=== PATIENT | male | born 1940 | race African-American/Black ===

== ENCOUNTER 2017-01-23 13:57 | Inpatient (IN) | payer BC, MEDICARE ==
[~2017-01-23] VITALS: Ht 180.3 cm; Wt 68.9 kg
[~2017-01-23 13:57] MED LIST: ATOR10TA PO; DIGO125T82 PO; DILT240C91 PO; FINA5TAB3 PO; HYDR-523 PO; LEVO500T2 PO; LISI-604 PO; METR500T PO; PROT40 PO; TAMS-11 PO
[2017-01-23] MEDS ORDERED: MORPHINE SULFATE 4 MG/ML CPJ (NOT FOR IM USE) IV ONE ×2 (15:30→17:30)
[2017-01-23] MEDS ORDERED: DILTIAZEM HCL 60MG TABLET PO ONE (18:45)
[2017-01-23] MEDS ORDERED: MAGNESIUM/ALUMINUM HYDROXIDE/SIMETHICONE 30ML UDC PO PRN (21:30)
[2017-01-23] MEDS ORDERED: ONDANSETRON HCL 4MG/2ML VIAL IV PRN (21:30)
[2017-01-23] MEDS ORDERED: MAGNESIUM HYDROXIDE 400MG/5ML 30ML UDC PO PRN (21:30)
[2017-01-23] MEDS ORDERED: DIPHENHYDRAMINE 50MG/ML VIAL IV PRN (21:30)
[2017-01-23] MEDS ORDERED: CLONIDINE 0.1MG TABLET PO PRN (21:30)
[2017-01-23] MEDS ORDERED: MORPHINE SULFATE 4 MG/ML CPJ (NOT FOR IM USE) IV PRN (21:30)
[2017-01-23] MEDS ORDERED: GUAIFENESIN 200MG/10ML SUGAR FREE UDC PO PRN (21:30)
[2017-01-23] MEDS ORDERED: ACETAMINOPHEN 325MG TABLET PO PRN (21:30)
[2017-01-23 22:00] VITALS: BP 163/80
[2017-01-23 22:31] VITALS: BP 163/77
[2017-01-23] MEDS: SODIUM CHLORIDE 0.9% INJ 3ML FLUSH IVF SCH (23:00)
[2017-01-24] VITALS: BP 160/72
[2017-01-24 04:00] VITALS: BP 172/68
[2017-01-24] MEDS: SODIUM CHLORIDE 0.9% INJ 3ML FLUSH IVF SCH ×3 (06:55→21:37)
[2017-01-24 08:00] VITALS: BP 143/74
[2017-01-24] MEDS: DILTIAZEM HCL 240MG ER (24HR) PO SCH (09:26)
[2017-01-24] MEDS: LISINOPRIL 20MG TABLET PO SCH ×2 (09:27→21:36)
[2017-01-24] MEDS: DOCUSATE SODIUM 250MG CAPSULE PO SCH ×2 (09:27→17:33)
[2017-01-24] MEDS: TAMSULOSIN HCL 0.4MG SR CAPSULE PO SCH (09:27)
[2017-01-24] MEDS: FINASTERIDE 5MG TABLET PO SCH (09:27)
[2017-01-24] MEDS ORDERED: MORPHINE SULFATE 2 MG/ML CPJ (NOT FOR IM USE) IV PRN (11:30)
[2017-01-24 12:00] VITALS: BP 128/72
[2017-01-24] MEDS: ASPIRIN 325MG EC TABLET PO SCH (12:13)
[2017-01-24] MEDS: HYDROCODONE/ACETAMINOPHEN 10/325MG TABLET PO PRN ×2 (14:46→17:42)
[2017-01-24 16:00] VITALS: BP 135/84
[2017-01-24 17:16] LABS: BASOPHILS % 0.5 % (0.0-2.0); EOSINOPHILS % 0.4 % (0.0-5.0); HEMATOCRIT. 34.7 % (42.0-52.0); HEMOGLOBIN. 11.6 g/dL (14.0-18.0); LYMPHOCYTES % 14.3 % (20.0-50.0); MEAN CORPUSCULAR HEMOGLOBIN 28.3 pg (28.0-32.0); MEAN CORPUSCULAR VOLUME 84.4 fL (80.0-94.0); MEAN PLATELET VOLUME 9.3 fl (7.4-10.4); MONOCYTES % 12.1 % (2.0-8.0); NEUTROPHILS % 72.7 % (40.0-76.0); PLATELET 192 x1000/uL (130-400); RED BLOOD CELL COUNT 4.11 mill/uL (4.7-6.1); RED CELL DISTRIBUTION WIDTH 16.1 % (11.6-14.6)
[2017-01-24] MEDS: DIGOXIN 125MCG TABLET PO SCH (17:33)
[2017-01-24 20:00] VITALS: BP 145/85
[2017-01-24] MEDS: ATORVASTATIN CALCIUM 10MG TABLET PO SCH (21:36)
[2017-01-25] VITALS: BP 134/80
[2017-01-25 04:00] VITALS: BP 129/69
[2017-01-25] MEDS: SODIUM CHLORIDE 0.9% INJ 3ML FLUSH IVF SCH ×3 (06:00→21:33)
[2017-01-25 06:24] LABS: BASOPHILS % 0.3 % (0.0-2.0); EOSINOPHILS % 0.1 % (0.0-5.0); HEMATOCRIT. 32.7 % (42.0-52.0); HEMOGLOBIN. 11.1 g/dL (14.0-18.0); LYMPHOCYTES % 13.9 % (20.0-50.0); MEAN CORPUSCULAR HEMOGLOBIN 28.6 pg (28.0-32.0); MEAN CORPUSCULAR VOLUME 84.5 fL (80.0-94.0); MEAN PLATELET VOLUME 8.9 fl (7.4-10.4); MONOCYTES % 12.8 % (2.0-8.0); NEUTROPHILS % 72.9 % (40.0-76.0); PLATELET 185 x1000/uL (130-400); RED BLOOD CELL COUNT 3.87 mill/uL (4.7-6.1); RED CELL DISTRIBUTION WIDTH 15.5 % (11.6-14.6)
[2017-01-25 07:45] LABS: CARBON DIOXIDE 22 mEq/L (21-32); CHLORIDE 105 mEq/L (98-107)
[2017-01-25] MEDS: TAMSULOSIN HCL 0.4MG SR CAPSULE PO SCH (09:00)
[2017-01-25] MEDS: DOCUSATE SODIUM 250MG CAPSULE PO SCH ×2 (09:00→18:37)
[2017-01-25] MEDS: FINASTERIDE 5MG TABLET PO SCH (09:00)
[2017-01-25] MEDS ORDERED: LORAZEPAM 2MG/ML CPJ IV NR (10:00)
[2017-01-25] MEDS: ASPIRIN 325MG EC TABLET PO SCH (10:57)
[2017-01-25] MEDS: DILTIAZEM HCL 240MG ER (24HR) PO SCH (10:57)
[2017-01-25] MEDS: LISINOPRIL 20MG TABLET PO SCH ×2 (10:58→20:58)
[2017-01-25 13:00] VITALS: BP 153/64
[2017-01-25] MEDS: DIGOXIN 125MCG TABLET PO SCH (18:35)
[2017-01-25 20:00] VITALS: BP 141/72
[2017-01-25] MEDS: ATORVASTATIN CALCIUM 10MG TABLET PO SCH (20:57)
[2017-01-26] VITALS: BP 136/65
[2017-01-26 04:00] VITALS: BP 134/85
[2017-01-26] MEDS: SODIUM CHLORIDE 0.9% INJ 3ML FLUSH IVF SCH ×3 (06:00→21:14)
[2017-01-26 08:00] VITALS: BP 135/69
[2017-01-26] MEDS: TAMSULOSIN HCL 0.4MG SR CAPSULE PO SCH (10:27)
[2017-01-26] MEDS: DOCUSATE SODIUM 250MG CAPSULE PO SCH ×2 (10:27→17:53)
[2017-01-26] MEDS: ASPIRIN 325MG EC TABLET PO SCH (10:27)
[2017-01-26] MEDS: DILTIAZEM HCL 240MG ER (24HR) PO SCH (10:27)
[2017-01-26] MEDS: FINASTERIDE 5MG TABLET PO SCH (10:28)
[2017-01-26] MEDS: LISINOPRIL 20MG TABLET PO SCH ×2 (10:28→21:06)
[2017-01-26 15:45] LABS: AMMONIA 11 uMol/L (<32)
[2017-01-26 15:56] LABS: T4 FREE 1.46 ng/dL (0.76-1.46)
[2017-01-26 16:24] LABS: FOLIC ACID (FOLATE) SERUM 7.7 ng/mL (>5.38)
[2017-01-26] MEDS: DIGOXIN 125MCG TABLET PO SCH (17:53)
[2017-01-26 20:00] VITALS: BP 121/79
[2017-01-26] MEDS: ATORVASTATIN CALCIUM 10MG TABLET PO SCH (21:05)
[2017-01-27] VITALS: BP 144/73
[2017-01-27 04:00] VITALS: BP 140/63
[2017-01-27] MEDS: SODIUM CHLORIDE 0.9% INJ 3ML FLUSH IVF SCH ×2 (07:02→13:28)
[2017-01-27 08:00] VITALS: BP 153/71
[2017-01-27] MEDS: ASPIRIN 325MG EC TABLET PO SCH (08:25)
[2017-01-27] MEDS: DOCUSATE SODIUM 250MG CAPSULE PO SCH ×2 (08:25→16:27)
[2017-01-27] MEDS: FINASTERIDE 5MG TABLET PO SCH (08:25)
[2017-01-27] MEDS: TAMSULOSIN HCL 0.4MG SR CAPSULE PO SCH (08:26)
[2017-01-27] MEDS: LISINOPRIL 20MG TABLET PO SCH ×2 (08:27→22:04)
[2017-01-27] MEDS: DILTIAZEM HCL 240MG ER (24HR) PO SCH (08:27)
[2017-01-27 12:00] VITALS: BP 145/76
[2017-01-27 16:00] VITALS: BP 126/62
[2017-01-27] MEDS: DIGOXIN 125MCG TABLET PO SCH (17:19)
[2017-01-27 20:00] VITALS: BP 152/80
[2017-01-27] MEDS: ATORVASTATIN CALCIUM 10MG TABLET PO SCH (22:04)
[2017-01-28] VITALS: BP 158/88
[2017-01-28 04:00] VITALS: BP 156/82
[2017-01-28 08:00] VITALS: BP 137/74
[2017-01-28] MEDS: DOCUSATE SODIUM 250MG CAPSULE PO SCH ×2 (09:00→17:00)
[2017-01-28] MEDS: ASPIRIN 325MG EC TABLET PO SCH (09:03)
[2017-01-28] MEDS: TAMSULOSIN HCL 0.4MG SR CAPSULE PO SCH (09:04)
[2017-01-28] MEDS: FINASTERIDE 5MG TABLET PO SCH (09:05)
[2017-01-28] MEDS: DILTIAZEM HCL 240MG ER (24HR) PO SCH (09:05)
[2017-01-28] MEDS: LISINOPRIL 20MG TABLET PO SCH ×2 (09:05→21:15)
[2017-01-28 12:00] VITALS: BP 151/82
[2017-01-28] MEDS: SODIUM CHLORIDE 0.9% INJ 3ML FLUSH IVF SCH ×2 (13:56→21:17)
[2017-01-28 16:00] VITALS: BP 142/81
[2017-01-28] MEDS: DIGOXIN 125MCG TABLET PO SCH (17:53)
[2017-01-28 20:00] VITALS: BP 167/80
[2017-01-28] MEDS: ATORVASTATIN CALCIUM 10MG TABLET PO SCH (21:15)
[2017-01-29] VITALS: BP 161/84
[2017-01-29 04:00] VITALS: BP 163/93
[2017-01-29] MEDS: SODIUM CHLORIDE 0.9% INJ 3ML FLUSH IVF SCH ×3 (06:03→22:06)
[2017-01-29 08:00] VITALS: BP 112/70
[2017-01-29] MEDS: DOCUSATE SODIUM 250MG CAPSULE PO SCH ×2 (09:00→17:00)
[2017-01-29] MEDS: LISINOPRIL 20MG TABLET PO SCH ×2 (09:00→22:05)
[2017-01-29] MEDS: DILTIAZEM HCL 240MG ER (24HR) PO SCH (09:00)
[2017-01-29] MEDS: ASPIRIN 325MG EC TABLET PO SCH (09:00)
[2017-01-29] MEDS: TAMSULOSIN HCL 0.4MG SR CAPSULE PO SCH (09:01)
[2017-01-29] MEDS: FINASTERIDE 5MG TABLET PO SCH (09:01)
[2017-01-29 12:46] VITALS: BP 126/77
[2017-01-29] MEDS: LEVOFLOXACIN 500MG TABLET PO SCH (17:16)
[2017-01-29 17:19] VITALS: BP 129/67
[2017-01-29] MEDS: DIGOXIN 125MCG TABLET PO SCH (18:03)
[2017-01-29 20:00] VITALS: BP 131/70
[2017-01-29] MEDS: ATORVASTATIN CALCIUM 10MG TABLET PO SCH (22:05)
[2017-01-30] VITALS: BP 148/73
[2017-01-30 04:00] VITALS: BP 127/75
[2017-01-30] MEDS: SODIUM CHLORIDE 0.9% INJ 3ML FLUSH IVF SCH ×2 (07:01→14:09)
[2017-01-30] MEDS: ASPIRIN 325MG EC TABLET PO SCH (08:36)
[2017-01-30] MEDS: DOCUSATE SODIUM 250MG CAPSULE PO SCH ×2 (08:36→17:00)
[2017-01-30] MEDS: FINASTERIDE 5MG TABLET PO SCH (08:36)
[2017-01-30] MEDS: DILTIAZEM HCL 240MG ER (24HR) PO SCH (08:36)
[2017-01-30] MEDS: TAMSULOSIN HCL 0.4MG SR CAPSULE PO SCH (08:36)
[2017-01-30] MEDS: LISINOPRIL 20MG TABLET PO SCH (08:36)
[2017-01-30 08:59] VITALS: BP 141/79
[2017-01-30] MEDS: LEVOFLOXACIN 500MG TABLET PO SCH (10:49)
[2017-01-30 12:49] VITALS: BP 146/80
[2017-01-30 17:11] VITALS: BP 108/66
[2017-01-30] MEDS: DIGOXIN 125MCG TABLET PO SCH (17:36)
[2017-01-30 17:57] VITALS: BP 108/66
== END 2017-01-30 18:50 | DRG 562 ==
LOC: ER 14:54 → 6EST 17:56 → CANRESERV 20:24 → ENRESERV 20:24
PROVIDERS: ADMIT Internal Medicine; ATTEND Internal Medicine
DX: S42.212A Unspecified displaced fracture of surgical neck of left humerus, initial encounter for closed fracture (principal); G82.50 Quadriplegia, unspecified; G92 Toxic encephalopathy; K50.90 Crohn's disease, unspecified, without complications; I48.0 Paroxysmal atrial fibrillation; R41.4 Neurologic neglect syndrome; H53.469 Homonymous bilateral field defects, unspecified side; N39.0 Urinary tract infection, site not specified; I11.9 Hypertensive heart disease without heart failure; I69.354 Hemiplegia and hemiparesis following cerebral infarction affecting left non-dominant side; J44.9 Chronic obstructive pulmonary disease, unspecified; W01.0XXA Fall on same level from slipping, tripping and stumbling without subsequent striking against object, initial encounter; N40.0 Benign prostatic hyperplasia without lower urinary tract symptoms; E78.00 Pure hypercholesterolemia, unspecified; S50.02XA Contusion of left elbow, initial encounter; Y93.01 Activity, walking, marching and hiking; R26.9 Unspecified abnormalities of gait and mobility; B96.4 Proteus (mirabilis) (morganii) as the cause of diseases classified elsewhere; E78.5 Hyperlipidemia, unspecified; F17.210 Nicotine dependence, cigarettes, uncomplicated; I25.10 Atherosclerotic heart disease of native coronary artery without angina pectoris; I35.1 Nonrheumatic aortic (valve) insufficiency; K21.9 Gastro-esophageal reflux disease without esophagitis; Z82.49 Family history of ischemic heart disease and other diseases of the circulatory system; Z95.1 Presence of aortocoronary bypass graft; Y92.89 Other specified places as the place of occurrence of the external cause; Y99.8 Other external cause status; Z68.21 Body mass index [BMI] 21.0-21.9, adult; Z79.899 Other long term (current) drug therapy
CPT/HCPCS: 36415; 70450; 70551; 73030; 73060; 73090; 80048; 80053; 82140; 82607; 82746; 83036; 84439; 84443; 84481; 85025; 87077; 87086; 87186; 92523; 92610; 93005; 93306; 93880; 96374; 96376; 97112; 97116; 97163; 97166; 97530; 99285; J2060; J2270; L3670

== ENCOUNTER 2018-11-26 12:29 | Emergency (ER) | payer BC ==
[~2018-11-26] VITALS: Ht 180.3 cm; Wt 73.0 kg
[2018-11-26 13:32] LABS: EOSINOPHILS % 0.1 % (0.0-5.0); HEMATOCRIT. 40.8 % (42.0-52.0); HEMOGLOBIN. 13.6 g/dL (14.0-18.0); MEAN CORPUSCULAR HEMOGLOBIN 29.2 pg (28.0-32.0); MEAN CORPUSCULAR VOLUME 87.7 fL (80.0-94.0); MEAN PLATELET VOLUME 8.6 fl (7.4-10.4); MONOCYTES % 11.8 % (2.0-8.0); NEUTROPHILS % 71.1 % (40.0-76.0); PLATELET 152 x1000/uL (130-400); RED BLOOD CELL COUNT 4.65 mill/uL (4.7-6.1)
[2018-11-26 13:39] LABS: CHLORIDE 111 mEq/L (98-107)
[2018-11-26 14:35] LABS: INR 1.1
[2018-11-26 17:40] LABS: CLARITY URINE CLEAR (CLEAR); COLOR URINE YELLOW (YELLOW); KETONES URINE TRACE (NEGATIVE); LEUKOCYTE ESTERASE URINE NEGATIVE (NEGATIVE); NITRITE URINE NEGATIVE (NEGATIVE); OCCULT BLOOD URINE 1+ (NEGATIVE); PROTEIN URINE 1+ (NEGATIVE); SPECIFIC GRAVITY URINE 1.025 (1.005-1.030)
[2018-11-26] MEDS ORDERED: ACETAMINOPHEN 650MG/20.3ML UDC PO ONE (18:30)
[2018-11-26 20:09] VITALS: BP 182/91
== END 2018-11-26 22:35 | disposition home or self-care (01) ==
LOC: ER 14:48
DX: S40.011A Contusion of right shoulder, initial encounter (principal); W06.XXXA Fall from bed, initial encounter; Y93.89 Activity, other specified; Y92.013 Bedroom of single-family (private) house as the place of occurrence of the external cause; I67.82 Cerebral ischemia; I10 Essential (primary) hypertension
CPT/HCPCS: 36415; 71045; 73030; 83880; 84484; 93005; 99284; A4565

== ENCOUNTER 2019-04-09 13:09 | Emergency (ER) | payer BC ==
[~2019-04-09] VITALS: Ht 177.8 cm; Wt 69.1 kg
[2019-04-09] MEDS ORDERED: IOHEXOL-350 100 ML BOTTLE ONE (13:42)
[2019-04-09 13:43] LABS: BASOPHILS % 1.2 % (0.0-2.0); EOSINOPHILS % 1.1 % (0.0-5.0); HEMATOCRIT. 38.8 % (42.0-52.0); LYMPHOCYTES % 22.4 % (20.0-50.0); MEAN CORPUSCULAR HEMOGLOBIN 28.8 pg (28.0-32.0); MEAN CORPUSCULAR VOLUME 85.8 fL (80.0-94.0); MEAN PLATELET VOLUME 8.4 fl (7.4-10.4); MONOCYTES % 10.1 % (2.0-8.0); NEUTROPHILS % 65.2 % (40.0-76.0); PLATELET 257 x1000/uL (130-400); RED BLOOD CELL COUNT 4.52 mill/uL (4.7-6.1); RED CELL DISTRIBUTION WIDTH 16.7 % (11.6-14.6)
[2019-04-09 13:49] LABS: CHLORIDE 110 mEq/L (98-107)
[2019-04-09 13:51] LABS: PROTHROMBIN TIME 10.6 sec (9.6-11.0)
[2019-04-09 13:53] LABS: ETHANOL BLOOD < 10 mg/dL
[2019-04-09 13:56] LABS: LDL CHOLESTEROL 85 mg/dL (5-100)
[2019-04-09 19:24] VITALS: BP 139/76
== END 2019-04-09 19:48 | disposition short-term general hospital (02) ==
LOC: ER 13:29 → CANBEDREQ 18:28 → ER 19:48
DX: R47.81 Slurred speech (principal); Z86.73 Personal history of transient ischemic attack (TIA), and cerebral infarction without residual deficits; Z79.899 Other long term (current) drug therapy
CPT/HCPCS: 36415; 70450; 70496; 71045; 80053; 80320; 82962; 83721; 84484; 85025; 85610; 93005; 99285; Q9967; A4315; G0480

== ENCOUNTER 2019-05-17 09:57 | Inpatient (IN) | payer BC, MEDICARE ==
[~2019-05-17] VITALS: Ht 180.3 cm; Wt 69.6 kg
[2019-05-17] MEDS ORDERED: SODIUM CHLORIDE 0.9% 1000ML BAG (SEPSIS BOLUS) IV ONE (10:30)
[2019-05-17 11:17] LABS: BASOPHILS % 0.6 % (0.0-2.0); EOSINOPHILS % 1.4 % (0.0-5.0); HEMATOCRIT. 41.4 % (42.0-52.0); HEMOGLOBIN. 13.4 g/dL (14.0-18.0); LYMPHOCYTES % 13.4 % (20.0-50.0); MEAN CORPUSCULAR HEMOGLOBIN 28.1 pg (28.0-32.0); MEAN CORPUSCULAR VOLUME 86.9 fL (80.0-94.0); MEAN PLATELET VOLUME 9.1 fl (7.4-10.4); NEUTROPHILS % 77.6 % (40.0-76.0); PLATELET 245 x1000/uL (130-400); RED BLOOD CELL COUNT 4.76 mill/uL (4.7-6.1); RED CELL DISTRIBUTION WIDTH 16.2 % (11.6-14.6)
[2019-05-17 11:18] LABS: CHLORIDE 110 mEq/L (98-107)
[2019-05-17 12:19] LABS: BG BASE EXCESS -2.1 mmol/L (-2.0-2.0); BG CARBOXYHEMOGLOBIN 0.3 % (0.5-1.5); BG DEOXYHEMOGLOBIN 0.5 % (0.0-5.0); BG FRACTION INSPIRED OXYGEN 100; BG HCO3 ACT 21.5 mmol/L (22.0-26.0); BG METHEMOGLOBIN 0.1 % (0.0-1.5); BG OXYGEN SATURATION 99.5 % (92.0-98.5); BG OXYHEMOGLOBIN 99.1 % (94.0-97.0); BG PCO2 33.2 mmHg (35.0-45.0); BG PH 7.429 (7.350-7.450); BG PO2 360.7 mmHg (75.0-100.0); BG SAMPLE SITE RIGHT BRACHIAL; BG TOTAL HEMOGLOBIN 12.9 g/dL (12.0-18.0); BG VENT MODE MASK - NRB
[2019-05-17] MEDS ORDERED: PIPERACILLIN/TAZ 3.375G PREMIX 50 ML IV ONE (12:30)
[2019-05-17] MEDS ORDERED: VANCOMYCIN 1 G PREMIX 200 ML IV ONE (12:30)
[2019-05-17 13:55] LABS: INR 1.1
[2019-05-17 16:00] VITALS: BP_SYST 103; BP_SYST 128; BP_DIAS 54; BP_DIAS 66
[2019-05-17] MEDS ORDERED: IPRATROPIUM/ALBUTEROL 0.5-3(2.5)MG/3ML NEB HHN PRN (16:00)
[2019-05-17] MEDS ORDERED: ONDANSETRON HCL 4MG/2ML INJ IV PRN (16:00)
[2019-05-17] MEDS ORDERED: PIPERACILLIN/TAZ 3.375G PREMIX 50 ML IV SCH (16:00)
[2019-05-17] MEDS ORDERED: HYDROCODONE/ACETAMINOPHEN 5/325MG TABLET PO PRN (16:00)
[2019-05-17] MEDS ORDERED: CLONIDINE 0.1MG TABLET PO PRN (16:00)
[2019-05-17] MEDS ORDERED: ATOR20TA65 MT (16:16)
[2019-05-17] MEDS ORDERED: DOCU-138 MT (16:23)
[2019-05-17] MEDS ORDERED: AMLO10TA80 MT (16:25)
[2019-05-17 18:00] VITALS: BP 138/72
[2019-05-17] MEDS: ENOXAPARIN 40MG/0.4ML SYR SUBCUT SCH (18:13)
[2019-05-17] MEDS: PIPERACILLIN/TAZOBACTAM 3.375 G in DEXT 5% WATER 100 ML IV SCH ×2 (19:29→23:21)
[2019-05-17 20:00] VITALS: BP 146/68
[2019-05-17 21:56] VITALS: BP 132/59
[2019-05-18] VITALS (11 sets, daily range): BP systolic 120–146; BP diastolic 57–85
[2019-05-18] MEDS: VANCOMYCIN 1 G PREMIX 200 ML IV SCH ×2 (01:57→20:41)
[2019-05-18] MEDS: PIPERACILLIN/TAZOBACTAM 3.375 G in DEXT 5% WATER 100 ML IV SCH ×3 (06:00→17:48)
[2019-05-18 09:20] LABS: CHLORIDE 110 mEq/L (98-107)
[2019-05-18 09:30] LABS: LDL CHOLESTEROL 72 mg/dL (5-100)
[2019-05-18 09:33] LABS: CREATINE KINASE 62 IU/L (39-308); HDL CHOLESTEROL 50 mg/dL (40-59)
[2019-05-18 09:34] LABS: CREATINE KINASE MB FRACTION < 1.0 ng/mL (0.5-3.6)
[2019-05-18] MEDS: ASPIRIN 81MG EC TABLET PO SCH (11:30)
[2019-05-18] MEDS: AMLODIPINE 5MG TABLET PO SCH (11:31)
[2019-05-18 12:02] LABS: BASOPHILS % 0.8 % (0.0-2.0); HEMATOCRIT. 35.3 % (42.0-52.0); HEMOGLOBIN. 11.7 g/dL (14.0-18.0); LYMPHOCYTES % 9.8 % (20.0-50.0); MEAN CORPUSCULAR HEMOGLOBIN 28.3 pg (28.0-32.0); MEAN CORPUSCULAR VOLUME 85.3 fL (80.0-94.0); MEAN PLATELET VOLUME 9.3 fl (7.4-10.4); MONOCYTES % 12.1 % (2.0-8.0); NEUTROPHILS % 75.3 % (40.0-76.0); PLATELET 271 x1000/uL (130-400); RED BLOOD CELL COUNT 4.14 mill/uL (4.7-6.1); RED CELL DISTRIBUTION WIDTH 15.8 % (11.6-14.6)
[2019-05-18 12:27] LABS: BG BASE EXCESS -1.4 mmol/L (-2.0-2.0); BG CARBOXYHEMOGLOBIN 0.5 % (0.5-1.5); BG DEOXYHEMOGLOBIN 5.8 % (0.0-5.0); BG FRACTION INSPIRED OXYGEN 21; BG HCO3 ACT 22.5 mmol/L (22.0-26.0); BG METHEMOGLOBIN 0.2 % (0.0-1.5); BG OXYGEN SATURATION 94.2 % (92.0-98.5); BG OXYHEMOGLOBIN 93.5 % (94.0-97.0); BG PCO2 35.1 mmHg (35.0-45.0); BG PH 7.425 (7.350-7.450); BG PO2 70.4 mmHg (75.0-100.0); BG SAMPLE SITE RIGHT BRACHIAL; BG TOTAL HEMOGLOBIN 12.4 g/dL (12.0-18.0); BG VENT MODE ROOM AIR
[2019-05-18] MEDS ORDERED: HYDRALAZINE 20MG/ML VIAL IV PRN (13:30)
[2019-05-18] MEDS ORDERED: DIPHENHYDRAMINE 50MG/ML VIAL IV PRN (13:30)
[2019-05-18] MEDS ORDERED: LACTULOSE 20G/30ML UDC PO PRN (13:30)
[2019-05-18] MEDS ORDERED: LORAZEPAM 2MG/ML CPJ IV PRN (13:30)
[2019-05-18] MEDS: LEVETIRACETAM 500MG PREMIX 100 ML IV SCH ×2 (15:36→22:02)
[2019-05-18 17:17] LABS: CLARITY URINE CLEAR (CLEAR); COLOR URINE YELLOW (YELLOW); KETONES URINE NEGATIVE (NEGATIVE); LEUKOCYTE ESTERASE URINE 2+ (NEGATIVE); NITRITE URINE NEGATIVE (NEGATIVE); OCCULT BLOOD URINE 1+ (NEGATIVE); PROTEIN URINE NEGATIVE (NEGATIVE); SPECIFIC GRAVITY URINE 1.012 (1.005-1.030); UROBILINOGEN URINE 0.2 E.U./dL (0.2-1.0)
[2019-05-18] MEDS: DIGOXIN 125MCG TABLET PO SCH (17:48)
[2019-05-18] MEDS: ENOXAPARIN 40MG/0.4ML SYR SUBCUT SCH (17:49)
[2019-05-18 18:10] LABS: *AMPHETAMINES SCREEN URINE NEGATIVE (NEGATIVE); *BARBITURATES SCREEN URINE NEGATIVE (NEGATIVE); *BENZODIAZEPINES SCREEN URINE NEGATIVE (NEGATIVE); *COCAINE SCREEN URINE NEGATIVE (NEGATIVE); CANNABINOID URINE SCREEN NEGATIVE (NEGATIVE)
[2019-05-18 18:11] LABS: METHADONE URINE SCREEN NEGATIVE (NEGATIVE); OPIATES URINE SCREEN NEGATIVE (NEGATIVE); PHENCYCLIDINE URINE SCREEN NEGATIVE (NEGATIVE)
[2019-05-18] MEDS: ATORVASTATIN CALCIUM 20MG TABLET PO SCH (20:41)
[2019-05-19] VITALS (11 sets, daily range): BP systolic 104–142; BP diastolic 50–82
[2019-05-19] MEDS: PIPERACILLIN/TAZOBACTAM 3.375 G in DEXT 5% WATER 100 ML IV SCH ×4 (00:05→20:06)
[2019-05-19 06:12] LABS: EOSINOPHILS % 2.5 % (0.0-5.0); HEMATOCRIT. 33.2 % (42.0-52.0); HEMOGLOBIN. 11.4 g/dL (14.0-18.0); LYMPHOCYTES % 12.9 % (20.0-50.0); MEAN CORPUSCULAR HEMOGLOBIN 28.8 pg (28.0-32.0); MEAN CORPUSCULAR VOLUME 84.2 fL (80.0-94.0); MEAN PLATELET VOLUME 8.9 fl (7.4-10.4); MONOCYTES % 9.4 % (2.0-8.0); NEUTROPHILS % 74.2 % (40.0-76.0); PLATELET 251 x1000/uL (130-400); RED BLOOD CELL COUNT 3.95 mill/uL (4.7-6.1); RED CELL DISTRIBUTION WIDTH 15.5 % (11.6-14.6)
[2019-05-19 06:48] LABS: CHLORIDE 110 mEq/L (98-107)
[2019-05-19 07:15] LABS: DIGOXIN 0.6 ng/mL (0.9-2.0)
[2019-05-19] MEDS: AMLODIPINE 5MG TABLET PO SCH (09:00)
[2019-05-19] MEDS: LEVETIRACETAM 500MG PREMIX 100 ML IV SCH (09:49)
[2019-05-19] MEDS: ASPIRIN 81MG EC TABLET PO SCH (09:49)
[2019-05-19] MEDS: CLOPIDOGREL 75MG TABLET PO SCH (11:43)
[2019-05-19] MEDS: VANCOMYCIN 1250MG in DEXTROSE 5% WATER 250ML IV SCH (17:05)
[2019-05-19] MEDS: ENOXAPARIN 40MG/0.4ML SYR SUBCUT SCH (18:58)
[2019-05-19] MEDS: DIGOXIN 125MCG TABLET PO SCH (18:58)
[2019-05-19] MEDS: ATORVASTATIN CALCIUM 20MG TABLET PO SCH (20:39)
[2019-05-19] MEDS: LEVETIRACETAM 500MG TABLET PO SCH (20:40)
[2019-05-20] VITALS (15 sets, daily range): BP systolic 99–135; BP diastolic 50–75
[2019-05-20] MEDS: PIPERACILLIN/TAZOBACTAM 3.375 G in DEXT 5% WATER 100 ML IV SCH ×5 (00:10→23:56)
[2019-05-20 07:13] LABS: BASOPHILS % 0.5 % (0.0-2.0); EOSINOPHILS % 0.3 % (0.0-5.0); HEMATOCRIT. 35.3 % (42.0-52.0); HEMOGLOBIN. 11.9 g/dL (14.0-18.0); LYMPHOCYTES % 8.2 % (20.0-50.0); MEAN CORPUSCULAR HEMOGLOBIN 28.7 pg (28.0-32.0); MEAN PLATELET VOLUME 8.7 fl (7.4-10.4); PLATELET 233 x1000/uL (130-400); RED BLOOD CELL COUNT 4.15 mill/uL (4.7-6.1); RED CELL DISTRIBUTION WIDTH 15.4 % (11.6-14.6)
[2019-05-20] MEDS: CLOPIDOGREL 75MG TABLET PO SCH (08:01)
[2019-05-20] MEDS: LEVETIRACETAM 500MG TABLET PO SCH ×2 (08:01→21:49)
[2019-05-20] MEDS: ASPIRIN 81MG EC TABLET PO SCH (08:01)
[2019-05-20] MEDS: AMLODIPINE 2.5MG TABLET PO SCH (08:01)
[2019-05-20] MEDS: VANCOMYCIN 1250MG in DEXTROSE 5% WATER 250ML IV SCH (08:14)
[2019-05-20] MEDS: SODIUM CHLORIDE 0.45% 1,000 ML IV SCH ×2 (11:54→23:58)
[2019-05-20] MEDS: ENOXAPARIN 40MG/0.4ML SYR SUBCUT SCH (16:11)
[2019-05-20] MEDS: DIGOXIN 125MCG TABLET PO SCH (17:09)
[2019-05-20] MEDS: ATORVASTATIN CALCIUM 20MG TABLET PO SCH (21:49)
[2019-05-21] VITALS: BP 117/58
[2019-05-21 04:00] VITALS: BP 105/53
[2019-05-21] MEDS: PIPERACILLIN/TAZOBACTAM 3.375 G in DEXT 5% WATER 100 ML IV SCH (05:32)
[2019-05-21 07:36] LABS: BASOPHILS % 1.1 % (0.0-2.0); EOSINOPHILS % 2.2 % (0.0-5.0); HEMATOCRIT. 33.7 % (42.0-52.0); HEMOGLOBIN. 11.4 g/dL (14.0-18.0); LYMPHOCYTES % 11.2 % (20.0-50.0); MEAN CORPUSCULAR HEMOGLOBIN 28.5 pg (28.0-32.0); MEAN CORPUSCULAR VOLUME 84.3 fL (80.0-94.0); MEAN PLATELET VOLUME 9.1 fl (7.4-10.4); MONOCYTES % 10.6 % (2.0-8.0); NEUTROPHILS % 74.9 % (40.0-76.0); PLATELET 253 x1000/uL (130-400); RED BLOOD CELL COUNT 3.99 mill/uL (4.7-6.1); RED CELL DISTRIBUTION WIDTH 15.4 % (11.6-14.6)
[2019-05-21 08:00] VITALS: BP 147/65
[2019-05-21] MEDS: ASPIRIN 81MG EC TABLET PO SCH (09:26)
[2019-05-21] MEDS: CLOPIDOGREL 75MG TABLET PO SCH (09:26)
[2019-05-21] MEDS: AMLODIPINE 2.5MG TABLET PO SCH (09:27)
[2019-05-21] MEDS: LEVETIRACETAM 500MG TABLET PO SCH (09:28)
[2019-05-21 12:00] VITALS: BP 141/67
== END 2019-05-21 15:35 | disposition hospice, home (50) | DRG 100 ==
LOC: ER 09:57 → 3WST 12:50 → EDBEDREQTM 12:54 → EDBEDREQ 12:54 → ENRESERV 14:43 → 7WST 05-20 22:20
PROVIDERS: ADMIT Internal Medicine; ATTEND Internal Medicine
DX: G40.909 Epilepsy, unspecified, not intractable, without status epilepticus (principal); J69.0 Pneumonitis due to inhalation of food and vomit; E87.2 Acidosis; N17.9 Acute kidney failure, unspecified; I48.20 Chronic atrial fibrillation, unspecified; K50.90 Crohn's disease, unspecified, without complications; N39.0 Urinary tract infection, site not specified; G93.40 Encephalopathy, unspecified; E44.0 Moderate protein-calorie malnutrition; R09.02 Hypoxemia; T68.XXXA Hypothermia, initial encounter; E78.5 Hyperlipidemia, unspecified; D64.9 Anemia, unspecified; N41.9 Inflammatory disease of prostate, unspecified; N18.9 Chronic kidney disease, unspecified; N40.0 Benign prostatic hyperplasia without lower urinary tract symptoms; I25.10 Atherosclerotic heart disease of native coronary artery without angina pectoris; J44.9 Chronic obstructive pulmonary disease, unspecified; G90.8 Other disorders of autonomic nervous system; I35.1 Nonrheumatic aortic (valve) insufficiency; F01.50 Vascular dementia, unspecified severity, without behavioral disturbance, psychotic disturbance, mood disturbance, and anxiety; I13.10 Hypertensive heart and chronic kidney disease without heart failure, with stage 1 through stage 4 chronic kidney disease, or unspecified chronic kidney disease; Z87.891 Personal history of nicotine dependence; Z82.3 Family history of stroke; Z82.49 Family history of ischemic heart disease and other diseases of the circulatory system; Z95.1 Presence of aortocoronary bypass graft; Z86.79 Personal history of other diseases of the circulatory system; Z91.81 History of falling; Z83.3 Family history of diabetes mellitus; Z79.899 Other long term (current) drug therapy; I69.30 Unspecified sequelae of cerebral infarction
CPT/HCPCS: 36415; 36600; 70551; 71045; 80048; 80053; 80061; 80162; 80202; 80305; 81003; 82140; 82375; 82550; 82553; 82805; 83605; 84145; 84153; 84439; 84443; 84484; 85025; 92610; 93005; 93306; 93970; 95816; 97162; 97530; 99291; J1650; J1953; J2543; J3370; J7030; J7040; J7060; G0103